=== PATIENT | female | born 1965 ===

== ENCOUNTER 2018-07-14 10:52 | Outpatient (CLI) | payer OTHER | END 2018-07-14 10:53 | disposition home or self-care (01) | LOC: C.MRIC 10:53 ==

== ENCOUNTER 2018-07-30 12:20 | Outpatient (CLI) | payer OTHER | END 2018-07-30 12:21 | disposition home or self-care (01) | LOC: C.MAMMO 12:20 | DX: N63.21 Unspecified lump in the left breast, upper outer quadrant (principal) ==